=== PATIENT | female | born 2005 | race Caucasian/White ===

== ENCOUNTER 2024-04-03 10:01 | Emergency (ER) | payer OTHER, SELFPAY ==
[2024-04-03 10:14] VITALS: BP 130/88; PULSE 100; RESP 20; TEMP 37.3; O2SAT 98
--- NOTE | 2024-04-03 10:53 | ED.URI ---
HPI - URI/Sore Throat General Chief Complaint: Upper Respiratory Infection Stated Complaint: chest heavy/throat/ears Time Seen by Provider: 04/03/24 10:28 Source: patient, RN notes reviewed and old records reviewed Mode of arrival: ambulatory Limitations: no limitations History of Present Illness HPI Narrative: 5 day history of sore throat, head congestion and drainage some hoarseness, stomach aches, ears hurt and upper chest hurts. Patient reports that she has not had a cough, denies any nausea or vomiting or any diarrhea. Patient reports that she has not had any temperature, no shortness of breath or any wheezing. Patient reports history of UTI's has increased her fluids. Patient reports that she has been taking TUMS, Sudafed and Mucinex. MD elicited complaint: sore throat, rhinorrhea, nasal congestion and other (stomach aches, chest aches,hoarseness, ears hurt) Onset (ago): day(s) (5) Pain scale (0-10): 7 Treatments prior to arrival: other (TUMs, Sudafed and Mucinex) Related Data Home Medications Medication Instructions Recorded Confirmed ferrous sulfate 325 mg (65 mg 325 mg PO DAILY 03/18/23 04/03/24 iron) tablet levonorgestrel-ethinyl estradiol 1 tablet PO DAILY 03/18/23 04/03/24 0.1 mg-20 mcg tablet (Sronyx) mirtazapine 15 mg tablet 15 mg PO DAILY 03/18/23 04/03/24 sertraline 100 mg tablet 100 mg PO DAILY 03/18/23 04/03/24 Allergies Allergy/AdvReac Type Severity Reaction Status Date / Time No Known Allergies Allergy Unverified 04/03/24 10:51 Review of Systems Review of Systems: CONSTITUTIONAL: Denies fever, chills, or sweats. EYES: Denies visual changes, redness, or discharge. ENT:Reports rhinorrhea, congestion, sore throat, or otalgia. CARDIOVASCULAR:reports upper chest hurts, no palpitations, or edema. RESPIRATORY: Denies cough or dyspnea. GASTROINTESTINAL: States stomach ache,no nausea, vomiting, or diarrhea. GENITOURINARY: Denies dysuria or hematuria. SKIN: Denies rash or itching. MUSCULOSKELETAL: Reports back pain,no joint pain, or myalgia. NEUROLOGIC: Denies headache, numbness, or weakness. PSYCHIATRIC: Positive for anxiety or depression. All systems reviewed & are unremarkable except as noted in HPI and below PMFSH Past Medical History Medical History (Updated 04/04/24 @ 19:43 by Luciana Dee NP) Adenoid hypertrophy Anemia Anxiety GERD (gastroesophageal reflux disease) History of sinus problem Family History Family History (Updated 03/18/23 @ 10:35 by Janina Juarez CERTIFIED NURSE AIDE) Father Depression Grandparent Hypertension Heart disease Thyroid disorder Social History Social History (Updated 03/18/23 @ 10:37 by Janina Juarez [facility]) Smoking status: Never smoker Alcohol intake: never Lack of Transportation: No Lack of Food: Never True Current Housing: I Have Housing Concerned About Future Housing: No Difficulty Paying Gas/Electric Bills: No Difficulty Paying for Meds: No Currently Unemployed: No Education: High School Diploma/GED Difficulty w/ Childcare or Family Care: No Comments At time of signature, agree with nursing past medical, surgical, social and family history. There is no relevant family history pertinent to the presenting complaint Exam Narrative: GENERAL: Well-appearing, well-nourished, and in no acute distress. HEAD: Normocephalic, atraumatic. EYES: PERRLA and EOMI. ENT: Nares clear, positive for rhinorrhea no epistaxis. Mucous membranes moist.TM's normal, throat red with no tonsil swelling post nasal drainage NECK: Supple. no lymphadenopathy CHEST: Clear to auscultation. No respiratory distress.SAO2 98% on room air HEART: Regular rate and rhythm. No murmur heard. Normal peripheral pulses. ABDOMEN: Soft, nontender, nondistended, normal active bowel sounds. EXTREMITIES: Normal range of motion. No edema. SKIN: Warm, dry, no rash. NEURO: No focal deficits. Alert and oriented x3.anxious Course Course Emergency Course: [place]
== END 2024-04-03 11:10 | disposition home or self-care (01) ==
PROVIDERS: Emergency Provider Registered Nurse
DX: J02.9 Acute pharyngitis, unspecified (principal); K21.9 Gastro-esophageal reflux disease without esophagitis; D64.9 Anemia, unspecified; F41.9 Anxiety disorder, unspecified
CPT/HCPCS: 81003; 99213; G0463